=== PATIENT | female | born 1995 | race Caucasian/White ===

== ENCOUNTER 2018-12-17 20:01 | Emergency (ER) | payer BC ==
[~2018-12-17 20:01] MED LIST: ISOVUE-370 76%-LOCM 1 ML ONE
[2018-12-17] MEDS ORDERED: Metoclopramide HCl 10 MG/2 ML VIAL ONE (21:11)
[2018-12-17] MEDS ORDERED: Pantoprazole 40 MG VIAL ONE (21:11)
[2018-12-17 21:17] LABS: #Lymphocytes 1.6 thou/uL (1.20-3.40); #Monocytes 0.4 thou/uL (0.11-0.59); %Basophils 0.2 % (0.0-1.0); %Eosinophils 0.2 % (0.0-10.0); %Lymphocytes 11.2 % (21.0-51.0); %Neutrophils 85.3 % (42.0-75.0); Hemoglobin 13.6 g/dL (12.0-16.0); Mean Corpuscular HGB CONC 32.6 g/dL (32.0-36.0); Mean Corpuscular Hemoglobin 30.1 pg (27.0-31.0); Mean Corpuscular Volume 92.6 fL (78.0-98.0); Mean Platelet Volume 7.2 fL (7.4-10.4); Platelet Count 271 thou/uL (130-400); Red Blood Cell (RBC) Count 4.51 mill/uL (4.20-5.40); White Blood Cell (WBC) Count 14.1 thou/uL (4.8-10.8)
[2018-12-17 21:18] LABS: Bilirubin Negative (Negative); Blood, Urine Trace (Negative); Clarity CLEAR (Clear); Glucose, Urine (Dipstick) Negative (Negative); Leukocyte Trace (Negative); Nitrite Negative (Negative); Protein, Urine (Dipstick) Trace mg/dL (Neg-Trace); Specific Gravity, Urine 1.023 (1.002-1.036); pH, Urine 6.5 (5.0-9.0)
[2018-12-17 21:20] LABS: Bacteria/HPF None Seen HPF (None Seen); Hyaline Casts/LPF 0-3 HYALINE CAST LPF (0-3 Hyaline); Squamous Epithelial 0-3 HPF (0-3)
[2018-12-17 21:22] LABS: BHCG - Serum Negative (NEGATIVE); Pregs Control Background? CLEAR/WHITE (CLR/WHITE); Pregs Control Bar Appear? YES (CONTROL BAR)
[2018-12-17 21:29] LABS: Yeast-All Forms None Seen HPF (None Seen)
[2018-12-17 22:12] LABS: Albumin 4.3 g/dL (3.5-5.0)
[2018-12-17 22:13] LABS: Chloride 103 mmol/L (98-107); Potassium 3.5 mmol/L (3.5-5.1); Sodium 137 mmol/L (136-145)
[2018-12-17 22:14] LABS: Calcium 9.3 mg/dL (7.8-10.44); Glucose 87 mg/dL (70-105)
[2018-12-17 22:15] LABS: Globulin 3.5 g/dL (2.4-3.5); Protein, Total 7.8 g/dL (6.0-8.3)
[2018-12-17 22:16] LABS: Anion Gap 16 mmol/L (10-20); Bilirubin, Total 0.4 mg/dL (0.2-1.2); Carbon Dioxide 22 mmol/L (22-29)
[2018-12-17 22:17] LABS: Alkaline Phosphatase 75 U/L (40-150)
[2018-12-17 22:18] LABS: Calc. Creatinine Clearance 0 mL/min (70-130); Estimated GFR-MDRD Greater than 90
[2018-12-17 22:19] LABS: BUN (Urea Nitrogen) 7 mg/dL (7.0-18.7)
[2018-12-17 22:20] LABS: ALT (SGPT) 16 U/L (8-55); AST (SGOT) 14 U/L (5-34)
[2018-12-17 22:21] LABS: CK (CPK) 134 U/L (29-168); Lipase 10 U/L (8-78)
--- NOTE | 2018-12-17 23:06 | CT ---
CT abdomen and pelvis with IV contrast HISTORY: Abdominal pain. Emesis. Constipation. FINDINGS: Lung bases are clear. The liver, spleen, kidneys, adrenal glands, and pancreas have a edward l CT appearance. Urinary bladder is unremarkable. No evidence of bowel obstruction or inflammation. IMPRESSION: No significant abnormalities are demonstrated.
--- NOTE | 2018-12-21 12:35 | EKG ---
Test Reason : Blood Pressure : / mmHG Vent. Rate : 079 BPM Atrial Rate : 079 BPM P-R Int : 148 ms QRS Dur : 076 ms QT Int : 384 ms P-R-T Axes : 029 005 010 degrees QTc Int : 440 ms Normal sinus rhythm with sinus arrhythmia Normal ECG Confirmed by KIM LIZARRAGA ([id number]), food editor HAIR LINDQUIST ([id number]) on 12/21/2018 12:34:59 PM Referred By: Confirmed By:KIM LIZARRAGA
== END 2018-12-17 22:38 | disposition home or self-care (01) ==
LOC: ERS 20:01
DX: R11.2 Nausea with vomiting, unspecified (principal); N39.0 Urinary tract infection, site not specified
CPT/HCPCS: 36415; 74177; 80053; 81003; 81015; 82550; 83690; 84703; 85025; 87086; 93005; 96365; 96366; 96372; 96375; C9113; J0500; J2765; Q9966